=== PATIENT | female | born 1950 ===

== ENCOUNTER 2021-01-30 10:35 | Emergency (ER) | payer OTHER ==
[~2021-01-30] VITALS: Ht 165.1 cm; Wt 65.8 kg
[2021-01-30] MEDS ORDERED: VENLAFAXINE HC150 MG PO (10:44)
[2021-01-30] MEDS ORDERED: DILTIAZEM ER300 MG PO (10:44)
[2021-01-30] MEDS ORDERED: HYDROCHLOROTHIA25 MG PO (10:45)
[2021-01-30] MEDS ORDERED: COZAAR100 MG PO (10:45)
[2021-01-30] MEDS ORDERED: TRAZODONE HCL150 MG PO (10:46)
[2021-01-30] MEDS ORDERED: DIPYRIDAMOLE75 MG PO (10:46)
[2021-01-30] MEDS ORDERED: CLONAZEPAM1 GM MC (10:46)
== END 2021-01-30 15:47 | disposition home or self-care (01) ==
LOC: ER 10:35
DX: K57.30 Diverticulosis of large intestine without perforation or abscess without bleeding (principal); R10.31 Right lower quadrant pain; Z03.818 Encounter for observation for suspected exposure to other biological agents ruled out

== ENCOUNTER 2022-02-12 09:55 | Outpatient (CLI) | payer OTHER ==
[~2022-02-12 09:55] MED LIST: CLONAZEPAM1 GM MC; COZAAR100 MG PO; DILTIAZEM ER300 MG PO; DIPYRIDAMOLE75 MG PO; HYDROCHLOROTHIA25 MG PO; TRAZODONE HCL150 MG PO; VENLAFAXINE HC150 MG PO
== END 2022-02-12 09:58 | disposition home or self-care (01) ==
LOC: RX STUDY 09:55
PROVIDERS: ATTEND Urology
DX: N81.0 Urethrocele (principal); N39.46 Mixed incontinence
CPT/HCPCS: 51600; 74455; A9698

== ENCOUNTER 2024-11-15 06:00 | Outpatient (CLI) | payer OTHER | END 2024-11-15 06:01 | disposition home or self-care (01) | LOC: RAD 06:00 → ADM 08:45 → CIR.AMB 11-21 07:00 → EDSTATUS 11-21 08:45 | PROVIDERS: ATTEND Obstetrics & Gynecology Gynecology | DX: N39.3 Stress incontinence (female) (male) (principal); D64.9 Anemia, unspecified; D68.9 Coagulation defect, unspecified; I10 Essential (primary) hypertension; R07.9 Chest pain, unspecified; N39.0 Urinary tract infection, site not specified ==